=== PATIENT | female | born 1960 | race African-American/Black ===

== ENCOUNTER → 2025-01-03 | Day surgery (SDC) | payer OTHER ==
[~2025-01-03] VITALS: Ht 167.6 cm; Wt 88.5 kg
[~2025-01-03] MED LIST: ACETAMINOPHEN 325MG TABLET PO PRN; ASPI-1497 PO; BUPIVACAINE HCL/PF 0.5% (5MG/ML) 10ML ONE; CEFAZOLIN SODIUM 1000MG/VIAL ONE; CHOL100022 PO; COLLAGEN PO; DEXAMETHASONE 4MG/ML 1ML VIAL ONE; FENTANYL CITRATE/PF 50MCG/ML 2ML VIAL ONE; HYDRALAZINE 20MG/ML VIAL IV PRN; HYDROMORPHONE HCL/PF 1MG/ML INJ IV PRN; KETOROLAC 30MG/ML VIAL ONE; LABETALOL 5MG/ML 4ML INJ IV PRN; MIDAZOLAM HCL 2 MG/2 ML VIAL ONE; MULT-1146 PO; ONDANSETRON HCL 4MG/2ML INJ IV PRN; ONDANSETRON HCL 4MG/2ML INJ ONE; PROPOFOL 200MG/20ML VIAL IV ONE; SKIN ADHESIVE 0.7 GM EA TOP ONE; SODIUM CHLORIDE 0.9% 1,000 ML IV SCH; VITA400T9 PO
== END | disposition home or self-care (01) ==
LOC: OR 05:22
PROVIDERS: ATTEND Surgery
DX: D17.22 Benign lipomatous neoplasm of skin and subcutaneous tissue of left arm (principal); D17.24 Benign lipomatous neoplasm of skin and subcutaneous tissue of left leg; E11.9 Type 2 diabetes mellitus without complications; M19.90 Unspecified osteoarthritis, unspecified site; Z85.3 Personal history of malignant neoplasm of breast; Z79.82 Long term (current) use of aspirin; Z79.899 Other long term (current) drug therapy; Z79.84 Long term (current) use of oral hypoglycemic drugs; Z98.890 Other specified postprocedural states
CPT/HCPCS: 27337; 88304; 82962; 24071; J1885; J3010; J0665; J0690; J1100; J2250; J2405; J2704